=== PATIENT | male | born 1965 | race Caucasian/White ===

== ENCOUNTER 2016-07-10 14:01 | Emergency (ER) | payer BC, OTHER ==
[~2016-07-10] VITALS: Ht 172.7 cm; Wt 88.5 kg
[2016-07-10] MEDS ORDERED: LABETALOL HCL 5 MG/ML 4ML SYRINGE IV ONE (14:45)
[2016-07-10] MEDS ORDERED: LORazepam 2MG/ML-1ML VIAL IV ONE (14:45)
[2016-07-10 14:59] LABS: Basophils # (auto) 0 uL; Basophils % (auto) 0.4 % (0.0-2.0); DEFINITIVE VIEW TRANSMISSION; Eosinophils # (auto) 0 uL; Eosinophils % (auto) 0.4 % (0.0-7.0); Hematocrit 23.3 % (41.0-53.0); Lymphocytes # (auto) 0.9 uL; Lymphocytes % (auto) 9.6 % (10.0-50.0); Mean Corpuscular Hemoglobin 28.5 pg (28.0-32.0); Mean Corpuscular Hgb Conc. 34.5 g/dL (32.0-36.0); Mean Corpuscular Volume 82.7 fL (80.0-100.0); Monocytes # (auto) 0.4 uL; Monocytes % (auto) 4.1 % (0.0-12.0); Neutrophils # (auto) 7.9 uL; Neutrophils % (auto) 85.5 % (37.0-80.0); Platelet Count (auto) 80 10^3/uL (140-450); Red Cell Distribution Width 18.9 % (11.6-16.0); White Blood Cell 9.2 10^3/uL (4.4-10.8)
[2016-07-10 15:27] LABS: Albumin 3.6 g/dL (3.4-5.0); BUN/Creatinine Ratio 7.5; Bilirubin, Total 1.6 mg/dL (0.2-1.0); Potassium 3.3 mmol/L (3.5-5.1); Total Protein 7.3 g/dL (6.4-8.2)
[2016-07-10] MEDS ORDERED: NITROFURANTOIN (MONO) 100 mg CAP PO ONE (15:45)
[2016-07-10] MEDS ORDERED: cloNIDine HCL 0.1 MG TAB PO ONE (15:45)
[2016-07-10 16:35] VITALS: BP 209/139
== END 2016-07-10 16:52 | disposition short-term general hospital (02) ==
LOC: ER 14:01
DX: I61.8 Other nontraumatic intracerebral hemorrhage (principal); I10 Essential (primary) hypertension; G91.9 Hydrocephalus, unspecified
CPT/HCPCS: 36415; 70450; 80053; 84484; 85025; 96374; 96375; 99291; J2060; J3490